=== PATIENT | female | born 1955 | race Caucasian/White ===

== ENCOUNTER 2022-01-09 18:37 | Emergency (ER) | payer MEDICAID ==
[2022-01-09 18:47] VITALS: BP 143/95; PULSE 75
== END 2022-01-09 19:35 | disposition home or self-care (01) ==
LOC: LB.ED 18:37
DX: S93.401A Sprain of unspecified ligament of right ankle, initial encounter (principal); Z88.2 Allergy status to sulfonamides; Z79.01 Long term (current) use of anticoagulants; W01.0XXA Fall on same level from slipping, tripping and stumbling without subsequent striking against object, initial encounter
CPT/HCPCS: 73610-RT; 99281; 99283

== ENCOUNTER 2022-01-15 17:19 | Emergency (ER) | payer MEDICAID | END 2022-01-15 18:20 | disposition home or self-care (01) | LOC: LB.ED 17:19 | DX: S92.354A Nondisplaced fracture of fifth metatarsal bone, right foot, initial encounter for closed fracture (principal); S82.831A Other fracture of upper and lower end of right fibula, initial encounter for closed fracture; Z88.2 Allergy status to sulfonamides; Z79.01 Long term (current) use of anticoagulants | CPT/HCPCS: 99282; 99283 ==